=== PATIENT | male | born 1980 | race Two or more races ===

== ENCOUNTER 2024-06-02 11:24 | Emergency (ER) | payer SELFPAY ==
[~2024-06-02] VITALS: Ht 170.2 cm; Wt 77.0 kg
[2024-06-02 11:39] VITALS: BP 111/70; PULSE 114; RESP 20; O2SAT 94
== END 2024-06-02 13:51 | disposition home or self-care (01) ==
LOC: EMS 11:24
DX: S00.83XA Contusion of other part of head, initial encounter (principal); R45.851 Suicidal ideations; Z02.89 Encounter for other administrative examinations; X58.XXXA Exposure to other specified factors, initial encounter; Y93.89 Activity, other specified; Y92.89 Other specified places as the place of occurrence of the external cause; Y99.8 Other external cause status
CPT/HCPCS: 70450; 99284